=== PATIENT | male | born 1975 | race Caucasian/White ===

== ENCOUNTER 2018-12-14 02:23 | Emergency (ER) | payer BC ==
[2018-12-14 03:13] LABS: Absolute Monocytes 0.5 K/uL (0.1-1.3); Absolute Neutrophil 2.2 K/uL (1.8-8.0); Basophils % 1.5 % (0-1.3); Eosinophils % 3.3 % (0-4.4); Hematocrit 40.8 % (39.6-49.0); Lymphocytes % 40.4 % (15.3-44.8); MPV 6.8 fL (7.6-11.3); Monocytes % 9.5 % (3.3-12.3); RBC Red Blood Cell Count 4.76 M/uL (4.33-5.43)
[2018-12-14] MEDS ORDERED: MORPHINE 4 MG/ML SYR ONE (03:14)
[2018-12-14] MEDS ORDERED: ONDANSETRON 4 MG (ODT) TAB ONE (03:15)
[2018-12-14] MEDS ORDERED: VALACYCLOVIR 500 MG TAB ONE (03:15)
[2018-12-14] MEDS ORDERED: NA CHLORIDE 0.9% 1,000 ML ONE (03:15)
[2018-12-14 03:28] LABS: Albumin 4.1 g/dL (3.4-5.0); Bilirubin Direct 0.1 mg/dL (0-0.2); Bilirubin Total 0.5 mg/dL (0.2-1.0); Potassium 3.2 mmol/L (3.5-5.1); Protein, Total 7.3 g/dL (6.4-8.2)
[2018-12-14] MEDS ORDERED: POTASSIUM 25 MEQ EFFERV TAB ONE (05:00)
--- NOTE | 2018-12-14 05:56 | ER ---
Nurse's Notes [facility] Name: Spencer White Age: 43 yrs Sex: Male : 1975 Arrival Date: 12/14/2018 Time: 02:27 Bed 5 Private MD: Diagnosis: Abdominal tenderness;Zoster [herpes zoster] Presentation: 12/14 02:32 Presenting complaint: Patient states: I have been having abdominal pain for the past 3 jb4 days. It started out in my back where I noticed I had what looked like a bug bite that developed a rash. It moved to my sides and my abdomen and moved from my lower abdomen to my upper. 02:32 Transition of care: patient was not received from another setting of care. Onset of jb4 symptoms was December 14, 2018. Risk Assessment: Do you want to hurt yourself or someone else? Patient reports no desire to harm self or others. Initial Sepsis Screen: Does the patient meet any 2 criteria? No. Patient's initial sepsis screen is negative. Does the patient have a suspected source of infection? No. Patient's initial sepsis screen is negative. Care prior to arrival: None. 02:32 Method Of Arrival: Ambulatory jb4 02:32 Acuity: DUY 3 jb4 Triage Assessment: 02:32 General: Appears in no apparent distress. uncomfortable, Behavior is calm, cooperative, jb4 appropriate for age. Pain: Complains of pain in back and abdomen Pain does not radiate. Pain currently is 7 out of 10 on a pain scale. Quality of pain is described as stinging. EENT: No signs and/or symptoms were reported regarding the EENT system. Neuro: Level of Consciousness is awake, alert, obeys commands, Oriented to person, place, time, situation. Cardiovascular: Patient's skin is warm and dry. Respiratory: Airway is patent Respiratory effort is even, unlabored, Respiratory pattern is regular, symmetrical. GI: Reports lower abdominal pain, upper abdominal pain, Patient currently denies diarrhea, nausea, vomiting. : No signs and/or symptoms were reported regarding the genitourinary system. Derm: Skin is intact, Skin is pink, warm \T\ dry. Rash noted that is red, raised. Musculoskeletal: Circulation, motion, and sensation intact. Historical: - Allergies: 02:32 No Known Allergies; aa1 - Home Meds: 02:32 valsartan oral oral [Active]; rosuvastatin oral oral [Active]; Ambien Oral [Active]; aa1 - PMHx: 02:32 Hyperlipidemia; Hypertension; aa1 - PSHx: 02:32 Appendectomy; aa1 - Immunization history:: Adult Immunizations up to date, Flu vaccine is not up to date. - Social history:: Smoking status: Patient/guardian denies using tobacco, Patient/guardian denies using alcohol. - Family history:: not pertinent. - Ebola Screening: : No symptoms or risks identified at this time. Screenin:32 Abuse screen: Denies threats or abuse. Nutritional screening: No deficits noted. jb4 Tuberculosis screening: No symptoms or risk factors identified. Fall Risk None identified. Assessment: 02:32 General: see triage assessment.. jb4 03:30 Reassessment: Patient appears in no apparent distress at this time. Patient and/or jb4 family updated on plan of care and expected duration. Pain level reassessed. Patient is alert, oriented x 3, equal unlabored respirations, skin warm/dry/pink. Patient states feeling better. 04:30 Reassessment: Patient appears in no apparent distress at this time. Patient and/or jb4 family updated on plan of care and expected duration. Pain level reassessed. Patient is alert, oriented x 3, equal unlabored respirations, skin warm/dry/pink. 05:30 Reassessment: Patient appears in no apparent distress at this time. Patient and/or jb4 family updated on plan of care and expected duration. Pain level reassessed. Patient is alert, oriented x 3, equal unlabored respirations, skin warm/dry/pink. 06:12 Reassessment: Patient appears in no apparent distress at this time. Patient and/or jb4 family updated on plan of care and expected duration. Pain level reassessed. Patient is alert, oriented x 3, equal unlabored respirations, skin warm/dry/pink. Vital Signs: 02:32 BP 111 / 90; Pulse 72; Resp 16; Temp 98.3(O); Pulse Ox 100% on R/A; Weight 91.2 kg (M); jb4 Height 5 ft. 10 in. (177.80 cm) (R); Pain 7/10; 04:00 BP 113 / 98; Pulse 67; Resp 16; Pulse Ox 100% on R/A; jb4 05:00 BP 115 / 76; Pulse 70; Resp 16; Pulse Ox 94% on R/A; jb4 06:00 BP 104 / 62; Pulse 75; Resp 16; Pulse Ox 98% on R/A; jb4 02:32 Body Mass Index 28.85 (91.20 kg, 177.80 cm) jb4 ED Course: 02:27 Patient arrived in ED. es 02:32 Arm band placed on left wrist. jb4 02:32 Patient has correct armband on for positive identification. Placed in gown. Bed in low jb4 position. Call light in reach. Side rails up X 1. Pulse ox on. NIBP on. 02:38 Kodi Lebron MD is Attending Physician. jonah 02:42 Opal Souza, CINDI is Primary Nurse. aa1 02:44 Triage completed. aa1 02:50 Initial lab(s) drawn, by me, sent to lab. Inserted saline lock: 22 gauge in right aa1 antecubital area, using aseptic technique. Blood collected. 03:35 Jamar Lynn, RN is Primary Nurse. jb4 04:[address] via wheelchair. kw1 05:23 CT Abd/Pelvis - W/Contrast: iv and oral In Process Unspecified. EDMS 05:55 Robb Crenshaw MD is Referral Physician. [facility] 06:00 No provider procedures requiring assistance completed. IV discontinued, intact, jb4 bleeding controlled. Administered Medications: 03:00 Drug: valACYclovir 1000 mg Route: PO; aa1 04:01 Follow up: Response: No adverse reaction jb4 03:01 Drug: Zofran 4 mg Route: PO; aa1 04:01 Follow up: Response: No adverse reaction; Nausea is decreased jb4 03:02 Drug: NS 0.9% 1000 ml Route: IV; Rate: 1 bolus; Site: right antecubital; aa1 04:00 Follow up: Response: No adverse reaction; IV Status: Completed infusion jb4 03:02 Drug: morphine 4 mg Route: IVP; Site: right antecubital; aa1 03:58 Follow up: Response: No adverse reaction; Pain is decreased jb4 05:03 Drug: Potassium Effervescent Tablet 25 mEq Route: PO; jb4 06:16 Follow up: Response: No adverse reaction jb4 Outcome: 05:55 Discharge ordered by . jonah 06:14 Discharged to home ambulatory, with family. [facility] 06:14 Condition: stable 06:14 Discharge instructions given to patient, significant other, Instructed on discharge instructions, follow up and referral plans. medication usage, Demonstrated understanding of instructions, follow-up care, medications, Prescriptions given X 3. 06:15 Patient left the ED. [facility] Signatures: Dispatcher [employer] EDMS Opal Souza RN RN aa1 Kodi Lebron MD MD cha Salyer, Edna es Bryson, James, RN RN [facility] Ella Meyer1 Corrections: (The following items were deleted from the chart) 02:32 Presenting complaint: Patient states: I have been having abdominal pain for the jb4 past 3 days. It started out in my back where I noticed I had what looked like a bug bite that developed a rash. It moved to my sides and my abdomen and moved from my lower abdomen to my upper. [facility] 02:32 Onset of symptoms was December 14, 2018 [place] [id number] 37 02:32 Transition of care: patient was not received from another setting of care. [place] [id number] 37 02:32 Method Of Arrival: Ambulatory [place] [id number] 37 02:32 Risk Assessment: Do you want to hurt yourself or someone else? [place] [address] :37 02:32 Initial Sepsis Screen: Does the patient meet any 2 criteria? No. Patient's 4 initial sepsis screen is negative. Does the patient have a suspected source of infection? No. Patient's initial sepsis screen is negative. [facility] 02:32 Care prior to arrival: None. [place] [id number] 37 02:32 Acuity: DUY 3 [place] [id number] 37 03:36 Presenting complaint: Patient states: I have been having abdominal pain for the jb4 past 3 days. It started out in my back where I noticed I had what looked like a bug bite that developed a rash. It moved to my sides and my abdomen and moved from my lower abdomen to my upper. [facility] 38 02:32 Immunization history: Adult Immunizations up to date, Flu vaccine is not up to [facility] date. [facility] 38 02:32 Ebola Screening: No symptoms or risks identified at this time [place] [address] 03:38 02:32 Social history: Smoking status: Patient/guardian denies using tobacco, jb4 Patient/guardian denies using alcohol, [facility] 02:32 General: Appears in no apparent distress. uncomfortable, Behavior is calm, jb4 cooperative, appropriate for age, [facility] 02:32 Pain: Complains of pain in back and abdomen Pain does not radiate. Pain currently jb4 is 7 out of 10 on a pain scale. Quality of pain is described as stinging, [facility] 02:32 EENT: No signs and/or symptoms were reported regarding the EENT system. [place] [address] 02:32 Neuro: Level of Consciousness is awake, alert, obeys commands, Oriented to jb4 person, place, time, situation, [facility] 02:32 Cardiovascular: [place] [address] 02:32 Respiratory: Airway is patent Respiratory effort is even, unlabored, Respiratory jb4 pattern is regular, symmetrical, [facility] 02:32 GI: Reports lower abdominal pain, upper abdominal pain, Patient currently denies jb4 diarrhea, nausea, vomiting, [facility] 02:32 : No signs and/or symptoms were reported regarding the genitourinary system. [facility] :40 02:32 Derm: Skin is intact, Skin is pink, warm \T\ dry. Rash noted that is red, raised, jb4 on right mid back [facility] 02:32 Musculoskeletal: Circulation, motion, and sensation intact. [place] [address] :41 02:32 BP 111 / 90; Pulse 72bpm; Resp 16bpm; Pulse Ox 100% RA; Temp 98.3F Oral; 91.2 kg jb4 Measured; Height 5 ft. 10 in. Reported; BMI: 28.8; Pain 7/10; [facility] : 02:32 Arm band placed on left wrist. [place] [address] 03:42 02:32 General: see triage assessment.. [place] [address] :43 02:32 Abuse screen: Denies threats or abuse. [place] [address] :43 02:32 Nutritional screening: No deficits noted. [place] [address] :43 02:32 Tuberculosis screening: No symptoms or risk factors identified. [place] [address] 02:32 Fall Risk None identified. [place] [address] 02:32 Patient has correct armband on for positive identification. Placed in gown. Bed jb4 in low position. Call light in reach. Side rails up X 1. aa1 02:32 Pulse ox on. NIBP on. [facility] jb4
--- NOTE | 2018-12-14 05:57 | EDPHYS ---
Physician Documentation [facility] Name: Spencer White Age: 43 yrs Sex: Male : 1975 Arrival Date: 12/14/2018 Time: 02:27 Bed 5 Private MD: ED Kodi Mejía HPI: 12/14 02:50 This 43 yrs old Male presents to ER via Ambulatory with complaints of jonah Abdominal Pain. 02:50 The patient's rash thought to be caused by zoster. Onset: The symptoms/episode jonah began/occurred 2 day(s) ago. The symptoms do not radiate. Associated signs and symptoms: none. Modifying factors: The symptoms are alleviated by nothing, the symptoms are aggravated by nothing. Severity of pain: At its worst the pain was moderate. The patient has not experienced similar symptoms in the past. Historical: - Allergies: 02:32 No Known Allergies; aa1 - Home Meds: 02:32 valsartan oral oral [Active]; rosuvastatin oral oral [Active]; Ambien Oral [Active]; aa1 - PMHx: 02:32 Hyperlipidemia; Hypertension; aa1 - PSHx: 02:32 Appendectomy; aa1 - Immunization history:: Adult Immunizations up to date, Flu vaccine is not up to date. - Social history:: Smoking status: Patient/guardian denies using tobacco, Patient/guardian denies using alcohol. - Family history:: not pertinent. - Ebola Screening: : No symptoms or risks identified at this time. ROS: 02:50 Constitutional: Negative for fever, chills, and weight loss, Eyes: Negative for injury, jonah pain, redness, and discharge, ENT: Negative for injury, pain, and discharge, Neck: Negative for injury, pain, and swelling, Cardiovascular: Negative for chest pain, palpitations, and edema, Respiratory: Negative for shortness of breath, cough, wheezing, and pleuritic chest pain, Back: Negative for injury and pain, : Negative for injury, bleeding, discharge, and swelling, MS/Extremity: Negative for injury and deformity, Neuro: Negative for headache, weakness, numbness, tingling, and seizure, Psych: Negative for depression, anxiety, suicide ideation, homicidal ideation, and hallucinations, Allergy/Immunology: Negative for hives, rash, and allergies, Endocrine: Negative for neck swelling, polydipsia, polyuria, polyphagia, and marked weight changes. 02:50 Abdomen/GI: Positive for abdominal pain. Exam: 02:50 Constitutional: This is a well developed, well nourished patient who is awake, alert, jonah and in no acute distress. Head/Face: Normocephalic, atraumatic. Eyes: Pupils equal round and reactive to light, extra-ocular motions intact. Lids and lashes normal. Conjunctiva and sclera are non-icteric and not injected. Cornea within normal limits. Periorbital areas with no swelling, redness, or edema. ENT: Nares patent. No nasal discharge, no septal abnormalities noted. Tympanic membranes are normal and external auditory canals are clear. Oropharynx with no redness, swelling, or masses, exudates, or evidence of obstruction, uvula midline. Mucous membranes moist. Neck: Trachea midline, no thyromegaly or masses palpated, and no cervical lymphadenopathy. Supple, full range of motion without nuchal rigidity, or vertebral point tenderness. No Meningismus. Chest/axilla: Normal chest wall appearance and motion. Nontender with no deformity. No lesions are appreciated. Cardiovascular: Regular rate and rhythm with a normal S1 and S2. No gallops, murmurs, or rubs. Normal PMI, no JVD. No pulse deficits. Respiratory: Lungs have equal breath sounds bilaterally, clear to auscultation and percussion. No rales, rhonchi or wheezes noted. No increased work of breathing, no retractions or nasal flaring. Back: No spinal tenderness. No costovertebral tenderness. Full range of motion. Male : Normal genitalia with no discharge or lesions. MS/ Extremity: Pulses equal, no cyanosis. Neurovascular intact. Full, normal range of motion. Neuro: Awake and alert, GCS 15, oriented to person, place, time, and situation. Cranial nerves II-XII grossly intact. Motor strength 5/5 in all extremities. Sensory grossly intact. Cerebellar exam normal. Normal gait. Psych: Awake, alert, with orientation to person, place and time. Behavior, mood, and affect are within normal limits. 02:50 Abdomen/GI: Inspection: abdomen appears normal, Bowel sounds: normal, Palpation: mild abdominal tenderness, in the epigastric area and right upper quadrant, Liver: no appreciated palpable abnormalities, Hernia: not appreciated. Vital Signs: 02:32 BP 111 / 90; Pulse 72; Resp 16; Temp 98.3(O); Pulse Ox 100% on R/A; Weight 91.2 kg (M); jb4 Height 5 ft. 10 in. (177.80 cm) (R); Pain 7/10; 04:00 BP 113 / 98; Pulse 67; Resp 16; Pulse Ox 100% on R/A; jb4 05:00 BP 115 / 76; Pulse 70; Resp 16; Pulse Ox 94% on R/A; jb4 06:00 BP 104 / 62; Pulse 75; Resp 16; Pulse Ox 98% on R/A; jb4 02:32 Body Mass Index 28.85 (91.20 kg, 177.80 cm) [facility] MDM: 02:38 Patient medically screened. [facility] 02:54 Data reviewed: vital signs, nurses notes, lab test result(s), radiologic studies, CT jonah scan. 12/14 02:48 Order name: Basic Metabolic Panel; Complete Time: 03:51 [facility] 12/14 02:48 Order name: CBC with Diff; Complete Time: 03:51 [facility] 12/14 02:48 Order name: Creatinine for Radiology; Complete Time: 03:51 [facility] 12/14 02:48 Order name: Hepatic Function; Complete Time: 03:51 [facility] 12/14 02:48 Order name: Lipase; Complete Time: 03:51 [facility] 12/14 03:51 Order name: CT Abd/Pelvis - W/Contrast: iv and oral [facility] 12/14 02:48 Order name: IV Saline Lock; Complete Time: 03:19 [facility] 12/14 02:48 Order name: Labs collected and sent; Complete Time: 03:19 [facility] Administered Medications: 03:00 Drug: valACYclovir 1000 mg Route: PO; aa1 04:01 Follow up: Response: No adverse reaction jb4 03:01 Drug: Zofran 4 mg Route: PO; aa1 04:01 Follow up: Response: No adverse reaction; Nausea is decreased jb4 03:02 Drug: NS 0.9% 1000 ml Route: IV; Rate: 1 bolus; Site: right antecubital; aa1 04:00 Follow up: Response: No adverse reaction; IV Status: Completed infusion jb4 03:02 Drug: morphine 4 mg Route: IVP; Site: right antecubital; aa1 03:58 Follow up: Response: No adverse reaction; Pain is decreased jb4 05:03 Drug: Potassium Effervescent Tablet 25 mEq Route: PO; jb4 06:16 Follow up: Response: No adverse reaction jb4 Disposition: 12/14/18 05:55 Discharged to Home. Impression: Abdominal tenderness, Zoster [herpes zoster]. - Condition is Fair. - Discharge Instructions: Abdominal Pain, Adult, Shingles, Shingles, [id number], Abdominal Pain, Adult, [id number]. - Prescriptions for Pepcid 20 mg Oral Tablet - take 1 tablet by ORAL route every 12 hours for 10 days; 20 tablet. Valtrex 1 g Oral Tablet - take 1 tablet by ORAL route every 8 hours for 7 days; 21 tablet. Zofran 4 mg Oral Tablet - take 1 tablet by ORAL route every 12 hours As needed; 20 tablet. - Medication Reconciliation Form, Thank You Letter, Antibiotic Education, Prescription Opioid Use form. - Follow up: Private Physician; When: 2 - 3 days; Reason: Recheck today's complaints, Continuance of care, Re-evaluation by your physician. Follow up: Robb Crenshaw; When: 2 - 3 days; Reason: Recheck today's complaints, Re-evaluation by your physician. - Problem is new. - Symptoms have improved. Signatures: Dispatcher [employer] EDOpal Chowdhury RN RN [email or web address] Kodi Lebron MD MD cha Bryson, James, RN RN jb4 Corrections: (The following items were deleted from the chart) 03:38 02:32 Immunization history: Adult Immunizations up to date, Flu vaccine is not up to [facility] date. [facility] 03:38 02:32 Ebola Screening: No symptoms or risks identified at this time [facility] jb 03:38 02:32 Social history: Smoking status: Patient/guardian denies using tobacco, jb4 Patient/guardian denies using alcohol, [facility] 06:15 05:55 12/14/2018 05:55 Discharged to Home. Impression: Abdominal tenderness; Zoster jb4 [herpes zoster]. Condition is Fair. Discharge Instructions: Abdominal Pain, Adult, Shingles, Shingles, [id number], Abdominal Pain, Adult, [id number]. Prescriptions for Pepcid 20 mg Oral Tablet - take 1 tablet by ORAL route every 12 hours for 10 days; 20 tablet, Valtrex 1 g Oral Tablet - take 1 tablet by ORAL route every 8 hours for 7 days; 21 tablet, Zofran 4 mg Oral Tablet - take 1 tablet by ORAL route every 12 hours As needed; 20 tablet. and Forms are Medication Reconciliation Form, Thank You Letter, Antibiotic Education, Prescription Opioid Use. Follow up: Private Physician; When: 2 - 3 days; Reason: Recheck today's complaints, Continuance of care, Re-evaluation by your physician. Follow up: Robb Crenshaw; When: 2 - 3 days; Reason: Recheck today's complaints, Re-evaluation by your physician. Problem is new. Symptoms have improved. jonah
--- NOTE | 2018-12-14 12:27 | RAD REPORT ---
EXAM DESCRIPTION: CT - Abdomen Pelvis W Contrast CLINICAL HISTORY: The patient is 43 years old an dis Male; ABD PAIN. COMPARISON: No relevant prior studies available. TECHNIQUE: Axial computed tomography images of the abdomen and pelvis with intravenous contrast. Sagittal and co gricel reformatted images were created and reviewed. This CT exam was performed using one or more of t he following dose reduction techniques: Automated exposure control, adjustment of the mA and/or kV ac cording to patient size, and/or use of iterative reconstruction technique. FINDINGS: Lung bases: Minimal dependent densities in the lung bases are present. ABDOMEN: Liver: The liver is enlarged. Gallbladder and bile ducts: The gallbladder is physiologically distended. No calcified gallstones or ductal dilatation is seen. Pancreas: No ductal dilation. No mass. Spleen: Unremarkable. Adrenals: Unremarkable. No mass. Kidneys and ureters: Unremarkable. No solid mass. No hydronephrosis. Stomach and bowel: Oral contrast is present within the stomach. Oral contrast is noted within the pro ximal small bowel which is normal in caliber. The distal small bowel is decompressed. Stool is presen t throughout the colon. There is no mucosal thickening or evidence of bowel obstruction. PELVIS: Appendix: The appendix is surgically absent. Bladder: Unremarkable. No mass. Reproductive: Unremarkable as visualized. ABDOMEN and PELVIS: Intraperitoneal space: Unremarkable. No free air. No significant fluid collection. Bones/Joints: Bilateral pars defects are present at L5 with grade 1 anterolisthesis of L5 on S1. Soft tissues: The soft tissues are normal. Vasculature: Unremarkable. No abdominal aortic aneurysm. Lymph nodes: Unremarkable. No enlarged lymph nodes. IMPRESSION: No acute findings on this contrasted CT of the abdomen and pelvis to explain the patient 's symptoms. Electronically signed by: Bruna Kaur MD 12/14/2018 5:30 AM [employer] Due to temporary technical issues with the PACS/Fluency reporting system, reports are being signed by the in house radiologist as a courtesy to ensure prompt reporting. The interpreting radiologist is f yuniorly responsible for the content of the report.
== END 2018-12-14 06:15 | disposition home or self-care (01) ==
LOC: ER 02:23
DX: B02.9 Zoster without complications (principal); I10 Essential (primary) hypertension; E78.5 Hyperlipidemia, unspecified
CPT/HCPCS: 36415; 74177; 80048; 80076; 83690; 85025; 96361; 96374; 99284; J7030; Q9967